=== PATIENT | male | born 1955 | race Caucasian/White ===

== ENCOUNTER 2016-12-06 17:34 | Emergency (ER) | payer MEDICAID, OTHER ==
[~2016-12-06] VITALS: Ht 172.7 cm; Wt 61.0 kg
[2016-12-06 18:00] VITALS: Ht 172.7 cm; Wt 61.0 kg
--- NOTE | 2016-12-06 20:59 | ERD ---
ER Documentation Chief Complaint Chief Complaint HEARING VOICES TELLING HIM HE SHOULD HAVE HPI 61-year-old man with a history of psychosis presents with auditory hallucinations, he states he has been hearing his mother. He states he has constant homicidal ideation to people he sees on the street and to complete strangers. He states he used to use quetiapine which would help control his symptoms but he has not used that for many months. He denies distinct plan to kill himself or hurt others. Patient denies recent fevers or chills, no chest pain or shortness of breath, no headache or blurry vision. ROS All systems reviewed and are negative except as per history of present illness. PMhx/Soc Drug abuse, schizophrenia Smoking Status: Current every day smoker FmHx Family History: No diabetes Physical Exam Vitals Vital Signs Date Time Temp Pulse Resp B/P Pulse Ox O2 Delivery O2 Flow Rate FiO2 12/06/16 18:00 99.0 96 18 143/87 98 Physical Exam GENERAL: Well-developed, well-nourished, agitated HEENT: Moist mucous membranes, pink conjunctiva, no cervical spine tenderness or step-off deformities, no goiter, no jaundice or icterus, extraocular movements intact without pain. No submandibular induration, and no pharyngeal erythema NEURO: Alert and oriented 3, cranial nerves II through XII intact bilaterally, pupils equal round reactive to light, no focal deficits or facial asymmetry, sensation intact distally Strength 5/5 in upper and lower extremities bilaterally CARDIAC: Regular rate and rhythm, no murmurs rubs or gallops LUNGS: Clear bilaterally no wheezing crackles or stridor ABDOMEN: Soft nontender, no guarding, no rigidity, no rebound, no psoas sign no obturator sign. Normoactive bowel sounds SKIN: Warm and dry to touch, no abrasions, contusions, or hematomas, no lacerations, no ecchymosis, no target lesions, and without ulcers EXTREMITIES: No clubbing cyanosis or edema, calves are bilaterally symmetrical, no Homans sign, no popliteal cord sign. Distal pulses equal and bilateral PSYCH: Agitated Result Diagram: 12/06/16 2100 Results 24 hrs Laboratory Tests Test 12/06/16 21:00 White Blood Count 6.610^3/ul Red Blood Count 4.5110^6/ul Hemoglobin 13.2g/dl Hematocrit 40.0% Mean Corpuscular Volume 88.7fl Mean Corpuscular Hemoglobin 29.3pg Mean Corpuscular Hemoglobin Concent 33.0g/dl Red Cell Distribution Width 14.6% Platelet Count 01089^3/UL Mean Platelet Volume 9.7fl Neutrophils % 52.6% Lymphocytes % 31.0% Monocytes % 8.2% Eosinophils % 7.4% Basophils % 0.3% Nucleated Red Blood Cells % 0.0/100WBC Neutrophils # 3.510^3/ul Lymphocytes # 2.110^3/ul Monocytes # 0.510^3/ul Eosinophils # 0.510^3/ul Basophils # 0.010^3/ul Nucleated Red Blood Cells # 0.010^3/ul Urine Color YELLOW Urine Clarity CLEAR Urine pH 5.0 Urine Specific [place] 1.020 Urine Ketones TRACEmg/dL Urine Nitrite NEGATIVEmg/dL Urine Bilirubin NEGATIVEmg/dL Urine Urobilinogen 2+mg/dL Urine Leukocyte Esterase NEGATIVELeu/ul Urine Hemoglobin NEGATIVEmg/dL Urine Glucose NEGATIVEmg/dL Urine Total Protein NEGATIVEmg/dl Current Medications Medications (Trade) Dose Ordered Sig/Melvi Route PRN Reason Start Time Stop Time Status Last Admin Dose Admin Lorazepam (Ativan) 0.5 mg ONCE ONCE PO 12/06/16 21:00 12/06/16 21:01 DC 12/06/16 21:12 Procedures/MDM Security one-to-one watch was established and psychiatric social insurance administrator has been contacted. I administered lorazepam 0.5 mg p.o. for his symptoms. CBC and electrolytes were normal, ethanol level pending, aspirin Tylenol levels negative. Tele-psychiatrist recommended 5150 hold. Patient's behavioral symptoms have stabilized while in the department. Patient is medically cleared and appropriate for psychiatric evaluation and work up. No e/o neurologic, toxic, infectious, or metabolic cause. 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
[2016-12-06] MEDS ORDERED: LORAZEPAM 0.5 MG TAB PO ONE (21:00)
[2016-12-06 21:19] LABS: BASOPHILS % 0.3 % (0.0-2.0); EOSINOPHILS # 0.5 10^3/ul (0.0-0.5); EOSINOPHILS % 7.4 % (0.0-7.0); HEMOGLOBIN 13.2 g/dl (14.0-18.0); LYMPHOCYTES # 2.1 10^3/ul (0.8-2.9); MEAN CORPUSCULAR HEMOGLOBIN 29.3 pg (29.0-33.0); MEAN CORPUSCULAR VOLUME 88.7 fl (82.0-101.0); MEAN PLATELET VOLUME 9.7 fl (7.4-10.4); MONOCYTE # 0.5 10^3/ul (0.3-0.9); MONOCYTES % 8.2 % (0.0-11.0); NEUTROPHIL # 3.5 10^3/ul (1.6-7.5); NEUTROPHILS % 52.6 % (39.0-77.0); PLATELET COUNT 205 10^3/UL (140-415); RED BLOOD COUNT 4.51 10^6/ul (4.70-6.10); RED CELL DISTRIBUTION WIDTH 14.6 % (11.5-14.5); WHITE BLOOD COUNT 6.6 10^3/ul (4.8-10.8)
[2016-12-06 21:25] LABS: ADD UMIC NO; UR ASCORBIC ACID NEGATIVE (NEGATIVE); UR BILIRUBIN (Dip) NEGATIVE (NEGATIVE); UR BLOOD (Dip) NEGATIVE (NEGATIVE); UR CLARITY CLEAR (CLEAR); UR COLOR YELLOW (YELLOW); UR GLUCOSE (Dip) NEGATIVE (NEGATIVE); UR KETONES (Dip) TRACE mg/dL (NEGATIVE); UR LEUKOCYTE ESTERASE (Dip) NEGATIVE Leu/ul (NEGATIVE); UR NITRITE (Dip) NEGATIVE (NEGATIVE); UR TOTAL PROTEIN (Dip) NEGATIVE (NEGATIVE); UR UROBILINOGEN (Dip) 2+ mg/dL (NEGATIVE)
--- NOTE | 2016-12-06 21:46 | PSY ---
Date/Time of Note Date/Time of Note DATE: 12/06/16 TIME: 21:41 Psychiatric Subjective Eval Consent Pt consented to telemedicine: Yes Subjective Evaluation Patient location: emergency Chief Complaint: HEARING VOICES TELLING HIM HE SHOULD HAVE Reason for consult: Psychosis, SI History of present illness Pt is a 61 year old male with depression and psychosis. He presented to the ER complaining of multiple voices that are telling him they are going to kill him. Pt feels paranoid and is having homicidal thoughts towards all the people who are following him. Pt reports a depressed mood, he is not sleeping well, he has a reduction in his appetite and a reduction in energy. He has a history of responding well to Zoloft but has not been taking his medication. Past psychiatric history Past psychiatric admissions. reports history of depression. Has past suicide attempt. Hospitalization: yes Family History Denies Medical history Problems Medical Problems: (1) Hallucinations Status: Acute (2) Psychosis Status: Acute Substance Abuse Substance use: No known substance abuse Social History Marital status: single Level of education: HS DPA/Conservatorship: No Occupation/Fdc: Not employed Psychiatric Objective Eval Physical Examination: Physical Examination: Applicable Sleep: Insomnia Appetite: Decreased Energy: Decreased Interest: Decreased Mental Status Examination: Appearance: Disheveled Eye Contact: Poor Psychomotor Activity: Slow Behavior: Cooperative Speech: Soft AFFECT: Intense Mood: Depressed Though Process: Linear Thought Content: Hallucinations Suicidal: No Homicidal: Yes On 72 hour hold: No Orientation: x3 Cognition: Drowsy Insight: Impared Judgement: Impared Laboratory Results Laboratory Tests Test 12/06/16 21:00 White Blood Count 6.610^3/ul Red Blood Count 4.5110^6/ul Hemoglobin 13.2g/dl Hematocrit 40.0% Mean Corpuscular Volume 88.7fl Mean Corpuscular Hemoglobin 29.3pg Mean Corpuscular Hemoglobin Concent 33.0g/dl Red Cell Distribution Width 14.6% Platelet Count 96583^3/UL Mean Platelet Volume 9.7fl Neutrophils % 52.6% Lymphocytes % 31.0% Monocytes % 8.2% Eosinophils % 7.4% Basophils % 0.3% Nucleated Red Blood Cells % 0.0/100WBC Neutrophils # 3.510^3/ul Lymphocytes # 2.110^3/ul Monocytes # 0.510^3/ul Eosinophils # 0.510^3/ul Basophils # 0.010^3/ul Nucleated Red Blood Cells # 0.010^3/ul Urine Color YELLOW Urine Clarity CLEAR Urine pH 5.0 Urine Specific [place] 1.020 Urine Ketones TRACEmg/dL Urine Nitrite NEGATIVEmg/dL Urine Bilirubin NEGATIVEmg/dL Urine Urobilinogen 2+mg/dL Urine Leukocyte Esterase NEGATIVELeu/ul Urine Hemoglobin NEGATIVEmg/dL Urine Glucose NEGATIVEmg/dL Urine Total Protein NEGATIVEmg/dl Assessment and Plan Assessment/Diagnosis [place]: Major Depressive Disorder, Recurrent, Severe with Psychosis Recommendation/Plan Medication Management Per inpatient psychiatry Psychotherapy NA Pt. Caregiver/Family Education NA Follow-up/Disposition Recommend 5150 for DTS and DTO. Patient is not able endorse safety out of the hospital. He is fearful he will be harmed and is worried that he will harm others. Patient does nor currently appear stable for outpatient care only. Recommend 5150 and transfer to inpatient psychiatry. 5150 Recommendation: Leland CHOWDHURYOLEG Dec 06, 2016 21:46
[2016-12-06 21:53] LABS: ALANINE AMINOTRANSFERASE 69 IU/L (13-69); ALBUMIN 3.9 g/dl (3.3-4.9); ALBUMIN/GLOBULIN RATIO 1.34; ALKALINE PHOSPHATASE 49 IU/L (42-121); ANION GAP 13 (8-16); ASPARTATE AMINO TRANSFERASE 55 IU/L (15-46); BLOOD UREA NITROGEN 10 mg/dl (7-20); CALCIUM 9.1 mg/dl (8.4-10.2); CARBON DIOXIDE 29 mmol/L (21-31); CHLORIDE 103 mmol/L (97-110); GLUCOSE 100 mg/dl (70-220); SODIUM 141 mmol/L (135-144); TOTAL PROTEIN 6.8 g/dl (6.1-8.1)
[2016-12-06 21:55] LABS: ACETAMINOPHEN < 10.0 ug/ml (10.0-30.0); ETHANOL < 10.0 mg/dl; SALICYLATE < 1.0 mg/dl (5.0-30.0)
[2016-12-06 22:09] LABS: CANNABINOIDS Positive (NEGATIVE)
[2016-12-06 22:12] LABS: BARBITURATES Negative (NEGATIVE); BENZODIAZEPINES Negative (NEGATIVE); COCAINE Negative (NEGATIVE); OPIATES Negative (NEGATIVE)
[2016-12-07 09:00] VITALS: TEMP 97.7
[2016-12-07 13:23] VITALS: BP 122/66; PULSE 80; RESP 20
== END 2016-12-07 16:01 ==
LOC: E/R 17:34
DX: F23 Brief psychotic disorder (principal); R45.850 Homicidal ideations; F17.210 Nicotine dependence, cigarettes, uncomplicated
CPT/HCPCS: 36415; 80053; 80306; 80307; 81003; 85025; Z7502; Z7610